=== PATIENT | female | born 1960 | race Caucasian/White ===

== ENCOUNTER → 2017-06-01 10:23 | Outpatient (CLI) | payer BC ==
[2016-02-28 08:29] VITALS: BMI 42.0
[~2017-06-01 10:23] MED LIST: EFFEXOR XR150 MG PO; GLUCOPHAGE500 MG PO; IBUPROFEN600 MG PO; LIPITOR40 MG PO; MOTRIN600 MG PEG; PERCOCET 5-3251 TAB PO; SYNTHROID125 MCG PO
== END | disposition home or self-care (01) ==
LOC: D.CT 10:23
DX: R22.1 Localized swelling, mass and lump, neck (principal)

== ENCOUNTER → 2018-09-11 05:40 | Day surgery (SDC) | payer BC ==
[2018-09-05 17:17] LABS: BASOPHILS 0.3 % (0-2); EOSINOPHILS 2.1 % (0-7); HEMATOCRIT 40.3 % (36.0-48.0); HEMOGLOBIN 13.7 g/dL (12-16); IMMATURE GRANULOCYTES 0.3 % (0-5); LYMPHOCYTES 39.9 % (15-50); MCH 30.9 pg (26.0-34.0); MEAN PLATELET VOLUME 9.8 fL (7.4-10.4); MONOCYTES 6.7 % (2-11); NEUTROPHILS 50.7 % (40-80); PLATELET COUNT 343 10x3/uL (130-400); RBC 4.43 10x6/uL (4.00-5.40); RDW 13.7 % (11.5-14.5); WBC 7.8 10x3/uL (4.8-10.8)
[2018-09-05 17:26] LABS: APTT 25.4 SECONDS (22.8-39.4); INR 0.86 (0.85-1.17); PROTIME 11.3 SECONDS (11.6-15.0)
[2018-09-05 17:42] LABS: CALC OSMOLALITY 286 mosm/kg (275-300); CALCIUM 8.9 mg/dL (8.5-10.1); CARBON DIOXIDE 27.7 mmol/L (21.0-32.0); CHLORIDE - SERUM 104 mmol/L (98-107); CREATININE - SERUM 0.6 mg/dL (0.6-1.3); GLUCOSE 210 mg/dL (74-106); SODIUM 141 mmol/L (136-145); UREA NITROGEN 12 mg/dL (7-18); eGFR NON AFRICAN AMERICAN > 90 mL/min (90-120)
[~2018-09-11] VITALS: Ht 167.6 cm; Wt 111.6 kg
[~2018-09-11 05:40] MED LIST changes: +VYVANSE40 MG PO
[2018-09-11 06:30] VITALS: BP 139/78; Ht 167.6 cm; Wt 111.6 kg
[2018-09-11 06:45] LABS: HCG URINE NEGATIVE (NEGATIVE)
--- NOTE | 2018-09-11 12:12 | NUR ---
1100 HAS DONE WELL. READY TO GO HOME. IV REMOVED WITH [facility] INTACT. DC ORDERS RECIEVED. ALL DC INSTRUCTIONS GIVEN. VOICES UNDERSTANDING. TAKEN OUT VIA WC. ADVISED TO CALL OR COME BACK IF ANY PROBLEMS.
== END | disposition home or self-care (01) ==
LOC: D.OPS 05:40 → D.PAN 07:30 → D.OPS 07:30
PROVIDERS: Anesthesiology; Obstetrics & Gynecology
DX: N95.0 Postmenopausal bleeding (principal); Z80.49 Family history of malignant neoplasm of other genital organs; Z01.812 Encounter for preprocedural laboratory examination

== ENCOUNTER 2018-09-20 08:00 | Outpatient (CLI) | payer BC ==
[2018-09-11 06:30] VITALS: BMI 39.8
== END 2018-09-20 09:00 | disposition home or self-care (01) ==
LOC: D.MAMMO 08:00
DX: Z12.31 Encounter for screening mammogram for malignant neoplasm of breast (principal)

== ENCOUNTER 2021-03-11 09:30 | Outpatient (CLI) | payer BC ==
[2018-09-11 06:30] VITALS: BMI 39.8
== END 2021-03-11 23:59 | disposition home or self-care (01) ==
LOC: D.MAMMO 09:30
PROVIDERS: ATTEND Nurse Practitioner Family
DX: Z12.31 Encounter for screening mammogram for malignant neoplasm of breast (principal)